=== PATIENT | male | born 1955 | race African-American/Black ===

== ENCOUNTER 2018-12-12 07:20 | Outpatient (CLI) | payer MEDICARE, MEDICAID | END 2018-12-12 23:59 | disposition home or self-care (01) | LOC: ROC 07:20 | PROVIDERS: ATTEND Radiology Radiation Oncology | DX: R91.8 Other nonspecific abnormal finding of lung field (principal); E11.9 Type 2 diabetes mellitus without complications; G89.29 Other chronic pain; F17.210 Nicotine dependence, cigarettes, uncomplicated; Z85.048 Personal history of other malignant neoplasm of rectum, rectosigmoid junction, and anus | CPT/HCPCS: G0463 ==